=== PATIENT | male | born 1945 | race Caucasian/White ===

== ENCOUNTER 2019-06-08 21:35 | Inpatient (IN) ==
[2019-06-09] MEDS ORDERED: Naloxone 0.4 MG/ML INJ IVP PRN (01:02)
[2019-06-09] MEDS: levoFLOXacin 750 MG/150 ML 750 MG/150 ML BAG IVPB SCH (02:12)
[2019-06-09 04:18] LABS: Basophils % 0.1 %; Eosinophils % 0.3 %; Hematocrit 36.4 % (37.5-50.1); Hemoglobin 12.1 g/dL (12.9-16.9); Immature Granulocytes % 0.6 % (0-4); Lymphocytes % 9.4 %; Mean Corpuscular HGB Conc 33.2 g/dL (31.6-35.5); Mean Corpuscular Hemoglobin 28.6 pg (28.0-33.3); Mean Corpuscular Volume 86.1 fL (83.0-100.0); Mean Platelet Volume 10.7 fL (9.4-12.4); Monocytes # 0.7 K/mcL (0.0-1.3); Monocytes % 6.3 %; Platelet Count 107 K/mcL (140-400); Red Blood Count 4.23 M/mcL (4.19-5.50); Red Cell Distribution Width 16.1 % (11.5-14.5); Segmented Neutrophils % 83.3 %; White Blood Count 10.8 K/mcL (4.3-11.1)
[2019-06-09 04:21] LABS: INR 1.1; Prothrombin Time 12.7 Seconds (9.4-12.1)
[2019-06-09 04:41] LABS: Alanine Aminotransferase 19 Units/L (7-52); Albumin 3.2 g/dL (3.5-5.7); Albumin/Globulin Ratio 1.7 (1.1-2.2); Alkaline Phosphatase 124 Units/L (34-104); Aspartate Amino Transferase 29 Units/L (13-39); BUN/Creatinine Ratio 17 (6-26); Bilirubin,Total 0.8 mg/dL (0.3-1.0); Blood Urea Nitrogen 18 mg/dL (8-23); Calcium 7.9 mg/dL (8.6-10.3); Carbon Dioxide 28 mEq/L (23-29); Chloride 104 mEq/L (98-107); Globulin 1.9 g/dL (2.4-3.5); Glucose 96 mg/dL (70-105); Osmolality,Calculated 284 (280-300); Potassium 3.8 mEq/L (3.5-5.1); Sodium 136 mEq/L (136-145); Total Protein 5.1 g/dL (6.4-8.9); eGFR For African Americans > 60 (> 60); eGFR For Non-African Americans > 60 (> 60)
[2019-06-09 06:27] LABS: Bilirubin,Urine Negative (Negative); Blood,Urine Large (Negative); Clarity,Urine Turbid (Clear); Color,Urine Yellow (Yellow); Glucose,Urine (UA) Normal (Normal); Ketones,Urine Negative (Negative); Leukocyte Esterase,Urine Large (Negative); Nitrite,Urine Positive (Negative); Protein,Urine 30 mg/dL (Neg-Trace); Specific Gravity,Urine 1.021 (1.010-1.025); Urobilinogen,Urine Normal (Normal)
[2019-06-09 06:29] LABS: Bacteria,Urine None Seen per hpf (None-Few); Hyaline Casts,Urine None Seen per lpf (None-Few); RBC,Urine TNTC per hpf (0-3); Squamous Epithelial Cell,Urine Many per lpf (None-Few); WBC,Urine TNTC per hpf (0-3)
[2019-06-09] MEDS: *HR* Heparin 5,000 UNIT/ML VIAL SQ SCH ×2 (07:12→17:19)
[2019-06-09] MEDS ORDERED: Ipratropium/Albuterol Neb 3 ML IH PRN (07:35)
[2019-06-09] MEDS: Finasteride 5 MG TABLET PO SCH (09:00)
[2019-06-09] MEDS: Gabapentin 300 MG CAPSULE PO SCH ×2 (09:00→23:10)
[2019-06-09] MEDS: Furosemide 20 MG TABLET PO SCH (09:01)
[2019-06-10] MEDS: *HR* Heparin 5,000 UNIT/ML VIAL SQ SCH ×2 (06:19→18:16)
[2019-06-10] MEDS: levoFLOXacin 750 MG/150 ML 750 MG/150 ML BAG IVPB SCH (08:44)
[2019-06-10] MEDS: Gabapentin 300 MG CAPSULE PO SCH ×2 (08:44→20:01)
[2019-06-10] MEDS: Furosemide 20 MG TABLET PO SCH (08:44)
[2019-06-10] MEDS: Finasteride 5 MG TABLET PO SCH (08:44)
[2019-06-11 05:33] LABS: Hematocrit 36.6 % (37.5-50.1); Hemoglobin 12.4 g/dL (12.9-16.9); Mean Corpuscular HGB Conc 33.9 g/dL (31.6-35.5); Mean Corpuscular Hemoglobin 28.8 pg (28.0-33.3); Mean Corpuscular Volume 85.1 fL (83.0-100.0); Platelet Count 117 K/mcL (140-400); Red Cell Distribution Width 16.1 % (11.5-14.5); White Blood Count 9.5 K/mcL (4.3-11.1)
[2019-06-11 05:37] LABS: BUN/Creatinine Ratio 13 (6-26); Blood Urea Nitrogen 15 mg/dL (8-23); Calcium 8.4 mg/dL (8.6-10.3); Carbon Dioxide 27 mEq/L (23-29); Chloride 101 mEq/L (98-107); Glucose 95 mg/dL (70-105); Osmolality,Calculated 283 (280-300); Potassium 4.1 mEq/L (3.5-5.1); Sodium 136 mEq/L (136-145); eGFR For African Americans > 60 (> 60); eGFR For Non-African Americans 59 (> 60)
[2019-06-11] MEDS: *HR* Heparin 5,000 UNIT/ML VIAL SQ SCH ×2 (05:48→16:47)
[2019-06-11] MEDS: Furosemide 20 MG TABLET PO SCH (09:10)
[2019-06-11] MEDS: Gabapentin 300 MG CAPSULE PO SCH ×2 (09:10→20:18)
[2019-06-11] MEDS: levoFLOXacin 750 MG/150 ML 750 MG/150 ML BAG IVPB SCH (09:11)
[2019-06-11] MEDS: Finasteride 5 MG TABLET PO SCH (09:11)
[2019-06-11] MEDS: Ertapenem 1,000 MG in 0.9 % Sodium Chloride Mini Bag 100 ML IVPB SCH (12:16)
[2019-06-12 03:44] LABS: Hematocrit 37.4 % (37.5-50.1); Hemoglobin 12.1 g/dL (12.9-16.9); Mean Corpuscular HGB Conc 32.4 g/dL (31.6-35.5); Mean Corpuscular Hemoglobin 28.7 pg (28.0-33.3); Mean Corpuscular Volume 88.6 fL (83.0-100.0); Mean Platelet Volume 10.9 fL (9.4-12.4); Platelet Count 116 K/mcL (140-400); Red Blood Count 4.22 M/mcL (4.19-5.50); Red Cell Distribution Width 16.2 % (11.5-14.5)
[2019-06-12 04:03] LABS: BUN/Creatinine Ratio 13 (6-26); Blood Urea Nitrogen 17 mg/dL (8-23); Calcium 8.6 mg/dL (8.6-10.3); Carbon Dioxide 26 mEq/L (23-29); Chloride 102 mEq/L (98-107); Glucose 88 mg/dL (70-105); Osmolality,Calculated 283 (280-300); Potassium 4.1 mEq/L (3.5-5.1); Sodium 136 mEq/L (136-145); eGFR For African Americans > 60 (> 60); eGFR For Non-African Americans 55 (> 60)
[2019-06-12] MEDS: *HR* Heparin 5,000 UNIT/ML VIAL SQ SCH ×2 (05:59→19:05)
[2019-06-12] MEDS: Ertapenem 1,000 MG in 0.9 % Sodium Chloride Mini Bag 100 ML IVPB SCH (08:15)
[2019-06-12] MEDS: Gabapentin 300 MG CAPSULE PO SCH ×2 (08:16→20:43)
[2019-06-12] MEDS: Furosemide 20 MG TABLET PO SCH (08:16)
[2019-06-12] MEDS: Finasteride 5 MG TABLET PO SCH (08:17)
[2019-06-13] MEDS: *HR* Heparin 5,000 UNIT/ML VIAL SQ SCH (05:32)
[2019-06-13] MEDS: Furosemide 20 MG TABLET PO SCH (08:11)
[2019-06-13] MEDS: Finasteride 5 MG TABLET PO SCH (08:11)
[2019-06-13] MEDS: Gabapentin 300 MG CAPSULE PO SCH (08:11)
[2019-06-13] MEDS: Ertapenem 1,000 MG in 0.9 % Sodium Chloride Mini Bag 100 ML IVPB SCH (08:12)
[2019-06-13 10:57] VITALS: BP 124/76
== END 2019-06-13 11:41 | DRG 690 ==
LOC: 2ANU → SUATTDRO 23:45
PROVIDERS: ADMIT Family Medicine; ATTEND Internal Medicine